=== PATIENT | male | born 1960 | race Caucasian/White ===

== ENCOUNTER → 2016-08-30 | Outpatient (CLI) | payer OTHER ==
[2016-08-30 13:45] LABS: BASE EXCESS -1.3 mEq/L (-3 to +3); BICARBONATE 23.7 mEq/L (22-26); CARBOXY HGB 1.1 % (0-5); COMMENTS - BLOOD GASES NAC+; FI02 21 %; METHEMOGLOBIN 1.1 % (0-1.5); PCO2 40 mm Hg (35-45); PO2 72 mm Hg (80-100); SITE LR; pH 7.38 (7.35-7.45)
== END | disposition home or self-care (01) ==
LOC: RES 12:55
PROVIDERS: Internal Medicine Pulmonary Disease
DX: J45.909 Unspecified asthma, uncomplicated (principal); R06.02 Shortness of breath
CPT/HCPCS: 36600; 82803; 94060; 94726; 94729